=== PATIENT | female | born 1930 | race Caucasian/White ===

== ENCOUNTER 2016-11-02 06:13 | Day surgery (SDC) | payer MEDICARE, OTHER ==
[2016-10-28 15:08] VITALS: BP 183/74
[~2016-11-02] VITALS: Ht 157.5 cm; Wt 81.0 kg
[~2016-11-02 06:13] MED LIST: AMLO5TAB2 PO; ASPI-496 PO; ATEN25TA PO; CEFD300C2 PO; CEPH-375 PO; CHOL20002 PO; CITA20TA5 PO; FURO20TA3 PO; LATA2.5D3 EACHEYE; LISI40TA PO; MAGNESSIUM PO; NITR0.4T8 SL; OCTIVITE PO; OMNICEF PO; OXYC-302 PO; POTA10TA31 PO; POTA10TA5 PO; SIMV10TA3 PO
[2016-11-02 07:10] VITALS: BP 183/74
[2016-11-02] MEDS ORDERED: FENTANYL PF 100 MCG/2ML ONE (07:21)
[2016-11-02] MEDS ORDERED: LACTATED RINGERS 1,000 ML IV SCH (07:28)
[2016-11-02] MEDS ORDERED: LIDOCAINE 1%, 2ML SQ PRN (07:30)
[2016-11-02] MEDS ORDERED: PROPOFOL 10 MG/ML, 20ML ONE (07:33)
[2016-11-02] MEDS ORDERED: ONDANSETRON 2MG/ML, 2ML ONE (07:33)
[2016-11-02] MEDS ORDERED: CEFAZOLIN 1,000 MG ONE (07:33)
[2016-11-02] MEDS ORDERED: LABETALOL 5MG/ML, 20ML IV PRN (08:30)
[2016-11-02] MEDS ORDERED: ONDANSETRON 2MG/ML, 2ML IVPush PRN (08:30)
[2016-11-02] MEDS ORDERED: FENTANYL PF 100 MCG/2ML IV PRN (08:30)
[2016-11-02] MEDS ORDERED: OXYcodone 5 MG/5 ML ORAL.SOL UDC PO PRN (08:30)
[2016-11-02] MEDS ORDERED: HYDROmorphone 1 MG/ML, 1ML IV PRN (08:30)
[2016-11-02] MEDS ORDERED: hydrALAzine 20 MG/ML, 1ML IV PRN (08:30)
== END 2016-11-02 09:50 | disposition home or self-care (01) ==
LOC: OUT 06:13
PROVIDERS: ATTEND Urology
DX: Z46.6 Encounter for fitting and adjustment of urinary device (principal); N13.5 Crossing vessel and stricture of ureter without hydronephrosis; Z87.440 Personal history of urinary (tract) infections; I13.0 Hypertensive heart and chronic kidney disease with heart failure and stage 1 through stage 4 chronic kidney disease, or unspecified chronic kidney disease; N18.9 Chronic kidney disease, unspecified; I50.9 Heart failure, unspecified; E78.5 Hyperlipidemia, unspecified; M19.90 Unspecified osteoarthritis, unspecified site; Z87.19 Personal history of other diseases of the digestive system; Z96.653 Presence of artificial knee joint, bilateral; Z98.49 Cataract extraction status, unspecified eye; Z96.1 Presence of intraocular lens; I25.10 Atherosclerotic heart disease of native coronary artery without angina pectoris; Z95.5 Presence of coronary angioplasty implant and graft; I48.91 Unspecified atrial fibrillation; I25.2 Old myocardial infarction; I35.0 Nonrheumatic aortic (valve) stenosis; Z82.49 Family history of ischemic heart disease and other diseases of the circulatory system; Z82.3 Family history of stroke; Z80.42 Family history of malignant neoplasm of prostate
CPT/HCPCS: 52332; 74000; 76000; C1769; C2617; J0690; J2405; J2704; J3010; J7120

== ENCOUNTER 2018-04-20 11:05 | Inpatient (IN) | payer MEDICARE, OTHER ==
[~2018-04-20] VITALS: Ht 157.5 cm; Wt 77.7 kg
[~2018-04-20 11:05] MED LIST changes: -AMLO5TAB2 PO; +AMLO5TAB7 PO; -CEFD300C2 PO; +CEFD300C37 PO; -CHOL20002 PO; +CHOL200052 PO; -CITA20TA5 PO; +CITA20TA6 PO; +NITR0.4T28 SL; -NITR0.4T8 SL; +[UNRECOGNIZED DRUG - OTHER] EC
[2018-04-20] MEDS ORDERED: LACTATED RINGERS 1,000 ML IV SCH (12:09)
[2018-04-20 12:16] VITALS: BP 138/86
[2018-04-20 13:18] LABS: CULTURE INDICATED? YES; MICROSCOPIC INDICATED
[2018-04-20] MEDS ORDERED: LABETALOL 5MG/ML, 20ML IVPush PRN (14:30)
[2018-04-20] MEDS ORDERED: ONDANSETRON 2MG/ML, 2ML IVPush PRN (14:30)
[2018-04-20] MEDS ORDERED: hydrALAzine 20 MG/ML, 1ML IVPush PRN (14:30)
[2018-04-20] MEDS ORDERED: ONDANSETRON ODT 4 MG PO PRN (14:30)
[2018-04-20] MEDS ORDERED: BISACODYL 10 MG SUPP PR PRN (14:30)
[2018-04-20] MEDS ORDERED: ACETAMINOPHEN 325 MG TABLET PO PRN (14:30)
[2018-04-20] MEDS ORDERED: POLYETHYLENE GLYCOL 17 GM PACKET PO PRN (14:30)
[2018-04-20 15:36] LABS: BASOPHILS # (AUTO) 0.03 x10^3/uL (0-0.1); BASOPHILS % (AUTO) 0 % (0-1); EOSINOPHILS # (AUTO) 0.24 x10^3/uL (0-0.4); EOSINOPHILS % (AUTO) 2 % (1-7); LYMPHOCYTES # (AUTO) 2.42 x10^3/uL (1-3.4); LYMPHOCYTES % (AUTO) 23 % (22-44); MD NO; MEAN CORPUSCULAR HEMOGLOBIN 29.8 pg (27.0-34.8); MEAN CORPUSCULAR HGB CONC 33.1 g/dL (32.4-35.8); MEAN CORPUSCULAR VOLUME 90.1 fL (80-100); MEAN PLATELET VOLUME 7.8 fL (7.4-10.4); MONOCYTES # (AUTO) 0.55 x10^3/uL (0.2-0.8); MONOCYTES % (AUTO) 5 % (2-9); NEUTROPHILS # (AUTO) 7.11 x10^3/uL (1.8-6.8); NEUTROPHILS % (AUTO) 69 % (42-75); PLATELET COUNT 344 x10^3/uL (130-400); RED BLOOD COUNT 4.95 x10^6/uL (3.82-5.3); RED CELL DISTRIBUTION WIDTH 14.8 % (9.6-15.2)
[2018-04-20 15:45] LABS: ALBUMIN 3.5 g/dL (3.4-5.0); ANION GAP 9 mmol/L (5-15); CALCIUM 9.3 mg/dL (8.5-10.1); CHLORIDE 112 mmol/L (98-107)
[2018-04-20 15:51] LABS: ALANINE AMINOTRANSFERASE 20 U/L (12-78); ALKALINE PHOSPHATASE 155 U/L (45-117); BILIRUBIN,TOTAL 0.6 mg/dL (0.2-1.0); CREATININE 1.76 mg/dL (0.55-1.02); TOTAL PROTEIN 6.9 g/dL (6.4-8.2); TROPONIN I < 0.015 ng/mL (0.000-0.045)
[2018-04-20 16:03] VITALS: BP 137/82
[2018-04-20] MEDS: CEFTRIAXONE PMX 1GM/50ML 50 ML IV SCH (16:35)
[2018-04-20] MEDS: SODIUM CHLORIDE 0.9% 1,000 ML IV SCH (16:35)
[2018-04-20 17:04] VITALS: BP 137/82
[2018-04-20] MEDS ORDERED: METOPROLOL 1 MG/ML, 5ML IVPush PRN (18:00)
[2018-04-20 20:00] VITALS: BP 129/74
[2018-04-20] MEDS: SIMVASTATIN 10 MG TABLET PO SCH (21:30)
[2018-04-20] MEDS: DOCUSATE 100 MG CAPSULE PO SCH (21:30)
[2018-04-21] MEDS: SODIUM CHLORIDE 0.9% 1,000 ML IV SCH (00:40)
[2018-04-21 02:00] VITALS: BP 147/84
[2018-04-21 07:00] VITALS: BP 152/89
[2018-04-21 08:45] LABS: BASOPHILS # (AUTO) 0.02 x10^3/uL (0-0.1); BASOPHILS % (AUTO) 0 % (0-1); EOSINOPHILS # (AUTO) 0.26 x10^3/uL (0-0.4); EOSINOPHILS % (AUTO) 3 % (1-7); LYMPHOCYTES # (AUTO) 1.96 x10^3/uL (1-3.4); LYMPHOCYTES % (AUTO) 21 % (22-44); MD NO; MEAN CORPUSCULAR HEMOGLOBIN 29.4 pg (27.0-34.8); MEAN CORPUSCULAR HGB CONC 32.9 g/dL (32.4-35.8); MEAN CORPUSCULAR VOLUME 89.3 fL (80-100); MEAN PLATELET VOLUME 7.3 fL (7.4-10.4); MONOCYTES # (AUTO) 0.51 x10^3/uL (0.2-0.8); MONOCYTES % (AUTO) 6 % (2-9); NEUTROPHILS # (AUTO) 6.56 x10^3/uL (1.8-6.8); NEUTROPHILS % (AUTO) 71 % (42-75); PLATELET COUNT 321 x10^3/uL (130-400); RED CELL DISTRIBUTION WIDTH 14.5 % (9.6-15.2)
[2018-04-21 08:56] LABS: ANION GAP 8 mmol/L (5-15); CALCIUM 8.3 mg/dL (8.5-10.1); CHLORIDE 113 mmol/L (98-107); CREATININE 1.78 mg/dL (0.55-1.02)
[2018-04-21] MEDS: MAGNESIUM OXIDE 400 MG TABLET PO SCH (09:00)
[2018-04-21] MEDS: DOCUSATE 100 MG CAPSULE PO SCH ×2 (09:00→21:43)
[2018-04-21] MEDS: CITALOPRAM 20 MG TABLET PO SCH (09:00)
[2018-04-21] MEDS: CHOLECALCIFEROL 1,000 UNIT TABLET PO SCH (09:00)
[2018-04-21] MEDS: ATENOLOL 25 MG TABLET PO SCH (09:19)
[2018-04-21] MEDS: AMLODIPINE 10 MG TAB PO SCH (09:19)
[2018-04-21 13:49] VITALS: BP 127/84
[2018-04-21] MEDS: HEPARIN 5,000 UNITS/ML, 1ML SQ SCH ×2 (15:26→23:23)
[2018-04-21] MEDS: CEFTRIAXONE PMX 1GM/50ML 50 ML IV SCH (16:43)
[2018-04-21 19:33] VITALS: BP 134/71
[2018-04-21] MEDS: SIMVASTATIN 10 MG TABLET PO SCH (21:43)
[2018-04-22 01:11] VITALS: BP 142/79
[2018-04-22 05:20] LABS: BASOPHILS # (AUTO) 0.02 x10^3/uL (0-0.1); BASOPHILS % (AUTO) 0 % (0-1); EOSINOPHILS # (AUTO) 0.21 x10^3/uL (0-0.4); EOSINOPHILS % (AUTO) 2 % (1-7); LYMPHOCYTES % (AUTO) 19 % (22-44); MD NO; MEAN CORPUSCULAR HEMOGLOBIN 29.7 pg (27.0-34.8); MEAN CORPUSCULAR HGB CONC 32.9 g/dL (32.4-35.8); MEAN CORPUSCULAR VOLUME 90.4 fL (80-100); MEAN PLATELET VOLUME 7.9 fL (7.4-10.4); MONOCYTES # (AUTO) 0.52 x10^3/uL (0.2-0.8); MONOCYTES % (AUTO) 5 % (2-9); NEUTROPHILS # (AUTO) 7.17 x10^3/uL (1.8-6.8); NEUTROPHILS % (AUTO) 73 % (42-75); PLATELET COUNT 305 x10^3/uL (130-400); RED BLOOD COUNT 4.58 x10^6/uL (3.82-5.3); RED CELL DISTRIBUTION WIDTH 14.4 % (9.6-15.2)
[2018-04-22 05:25] LABS: ALANINE AMINOTRANSFERASE 19 U/L (12-78); ALBUMIN 2.9 g/dL (3.4-5.0); ANION GAP 9 mmol/L (5-15); CALCIUM 8.6 mg/dL (8.5-10.1); CHLORIDE 114 mmol/L (98-107)
[2018-04-22 05:27] LABS: ALKALINE PHOSPHATASE 132 U/L (45-117); BILIRUBIN,TOTAL 0.5 mg/dL (0.2-1.0); TOTAL PROTEIN 5.8 g/dL (6.4-8.2)
[2018-04-22] MEDS: HEPARIN 5,000 UNITS/ML, 1ML SQ SCH (05:44)
[2018-04-22 07:26] VITALS: BP 132/83
[2018-04-22] MEDS ORDERED: ASPIRIN 81 MG TABLET EC PO SCH (09:00)
[2018-04-22] MEDS: CITALOPRAM 20 MG TABLET PO SCH (09:06)
[2018-04-22] MEDS: AMLODIPINE 10 MG TAB PO SCH (09:07)
[2018-04-22] MEDS: CHOLECALCIFEROL 1,000 UNIT TABLET PO SCH (09:07)
[2018-04-22] MEDS: DOCUSATE 100 MG CAPSULE PO SCH (09:07)
[2018-04-22] MEDS: MAGNESIUM OXIDE 400 MG TABLET PO SCH (09:07)
[2018-04-22] MEDS: ATENOLOL 25 MG TABLET PO SCH (09:07)
[2018-04-22] MEDS ORDERED: CEFD300C37 PO (09:52)
== END 2018-04-22 13:10 | disposition home or self-care (01) | DRG 690 ==
LOC: OUT 11:05 → ORIP 14:15 → 4WST 15:42
PROVIDERS: ADMIT Urology; ATTEND Urology
DX: N39.0 Urinary tract infection, site not specified (principal); I48.92 Unspecified atrial flutter; I13.0 Hypertensive heart and chronic kidney disease with heart failure and stage 1 through stage 4 chronic kidney disease, or unspecified chronic kidney disease; N13.5 Crossing vessel and stricture of ureter without hydronephrosis; I50.9 Heart failure, unspecified; I25.10 Atherosclerotic heart disease of native coronary artery without angina pectoris; Z53.9 Procedure and treatment not carried out, unspecified reason; K59.00 Constipation, unspecified; I48.91 Unspecified atrial fibrillation; N18.9 Chronic kidney disease, unspecified; Z96.0 Presence of urogenital implants; M19.90 Unspecified osteoarthritis, unspecified site; R00.0 Tachycardia, unspecified; E86.0 Dehydration; Z87.891 Personal history of nicotine dependence; I25.2 Old myocardial infarction
CPT/HCPCS: 36415; 71045; 80048; 80053; 81001; 83605; 83735; 84443; 84484; 85025; 87040; 87077; 87086; 87186; 93005; G0378; J0696; J1644; J7030

== ENCOUNTER 2018-04-25 15:14 | Day surgery (SDC) | payer MEDICARE, OTHER ==
[~2018-04-25] VITALS: Ht 157.5 cm; Wt 77.3 kg
[2018-04-25 15:47] VITALS: BP 140/80
[2018-04-25] MEDS ORDERED: LACTATED RINGERS 1,000 ML IV SCH (16:05)
[2018-04-25] MEDS ORDERED: FENTANYL PF 100 MCG/2ML ONE (16:32)
[2018-04-25] MEDS ORDERED: LIDOCAINE 2% 100MG/5ML SYRINGE ONE (17:10)
[2018-04-25] MEDS ORDERED: PROPOFOL 10 MG/ML, 20ML ONE (17:10)
[2018-04-25] MEDS ORDERED: CEFTRIAXONE 1,000 MG ONE (17:20)
[2018-04-25] MEDS ORDERED: ONDANSETRON 2MG/ML, 2ML IV PRN (17:30)
[2018-04-25] MEDS ORDERED: FENTANYL PF 100 MCG/2ML IV PRN (17:30)
[2018-04-25] MEDS ORDERED: OXYcodone 5 MG/5 ML ORAL.SOL UDC PO PRN (17:30)
[2018-04-25] MEDS ORDERED: ONDANSETRON ODT 8 MG PO PRN (17:30)
[2018-04-25] MEDS ORDERED: ACETAMINOPHEN 325 MG TABLET PO PRN (17:30)
[2018-04-25] MEDS ORDERED: OXYC-302 PO (20:44)
== END 2018-04-25 21:25 | disposition home or self-care (01) ==
LOC: OR 15:14 → 4NOR 18:20 → OR 21:25
PROVIDERS: ATTEND Urology
DX: T83.89XA Other specified complication of genitourinary prosthetic devices, implants and grafts, initial encounter (principal); I10 Essential (primary) hypertension; I25.2 Old myocardial infarction; Y83.8 Other surgical procedures as the cause of abnormal reaction of the patient, or of later complication, without mention of misadventure at the time of the procedure; Y92.89 Other specified places as the place of occurrence of the external cause; Z87.440 Personal history of urinary (tract) infections; Z98.890 Other specified postprocedural states; Z79.82 Long term (current) use of aspirin; Z88.1 Allergy status to other antibiotic agents; Z88.8 Allergy status to other drugs, medicaments and biological substances; Z87.39 Personal history of other diseases of the musculoskeletal system and connective tissue
CPT/HCPCS: 52332; 74018; 76000; C1769; C2617; J0696; J2704; J3010; J7120; G0378

== ENCOUNTER 2018-04-29 00:45 | Inpatient (IN) | payer MEDICARE, OTHER ==
[~2018-04-29] VITALS: Ht 157.5 cm; Wt 85.6 kg
[2018-04-29] MEDS ORDERED: ALBUTEROL/IPRATROPIUM 2.5MG/0.5MG, 3 ML ONE (00:57)
[2018-04-29] MEDS ORDERED: ASPIRIN 81 MG TABLET CHEW PO ONE (01:00)
[2018-04-29] MEDS ORDERED: IPRATROPIUM 0.5 MG/2.5 ML INHA NPPB ONE (01:00)
[2018-04-29] MEDS ORDERED: methylPREDNISolone SOD SUCC 125 MG/2 ML IVP ONE (01:00)
[2018-04-29] MEDS ORDERED: ALBUTEROL SULFATE 2.5 MG/3 ML NPPB ONE (01:00)
[2018-04-29] MEDS ORDERED: SODIUM CHLORIDE 0.9% 1,000ML IVBOLUS ONE (01:00)
[2018-04-29 01:11] LABS: BASOPHILS # (AUTO) 0.03 x10^3/uL (0-0.1); BASOPHILS % (AUTO) 0 % (0-1); EOSINOPHILS # (AUTO) 0.29 x10^3/uL (0-0.4); EOSINOPHILS % (AUTO) 3 % (1-7); LYMPHOCYTES # (AUTO) 2.65 x10^3/uL (1-3.4); LYMPHOCYTES % (AUTO) 23 % (22-44); MD NO; MEAN CORPUSCULAR HEMOGLOBIN 29.9 pg (27.0-34.8); MEAN CORPUSCULAR VOLUME 90.4 fL (80-100); MEAN PLATELET VOLUME 7.9 fL (7.4-10.4); MONOCYTES # (AUTO) 0.64 x10^3/uL (0.2-0.8); MONOCYTES % (AUTO) 6 % (2-9); NEUTROPHILS # (AUTO) 7.84 x10^3/uL (1.8-6.8); NEUTROPHILS % (AUTO) 69 % (42-75); PLATELET COUNT 384 x10^3/uL (130-400); RED BLOOD COUNT 4.68 x10^6/uL (3.82-5.3); RED CELL DISTRIBUTION WIDTH 14.4 % (9.6-15.2)
[2018-04-29] MEDS ORDERED: methylPREDNISolone SOD SUCC 125 MG/2 ML ONE (01:21)
[2018-04-29] MEDS ORDERED: ASPIRIN 81 MG TABLET EC ONE (01:21)
[2018-04-29 01:25] LABS: ALBUMIN 3.2 g/dL (3.4-5.0); ANION GAP 11 mmol/L (5-15); CALCIUM 8.9 mg/dL (8.5-10.1); CHLORIDE 113 mmol/L (98-107)
[2018-04-29 01:28] LABS: TROPONIN I < 0.015 ng/mL (0.000-0.045)
[2018-04-29] MEDS ORDERED: PROMETHAZINE 25 MG/ML, 1ML IM PRN (03:30)
[2018-04-29] MEDS ORDERED: BISACODYL 10 MG SUPP PR PRN (03:30)
[2018-04-29] MEDS ORDERED: FUROSEMIDE 40 MG/4 ML IV ONE (03:30)
[2018-04-29] MEDS ORDERED: POLYETHYLENE GLYCOL 17 GM PACKET PO PRN (03:30)
[2018-04-29] MEDS ORDERED: DOCUSATE 100 MG CAPSULE PO PRN (03:30)
[2018-04-29] MEDS ORDERED: ONDANSETRON 2MG/ML, 2ML IVPush PRN (03:30)
[2018-04-29] MEDS ORDERED: ACETAMINOPHEN 325 MG TABLET PO PRN (03:30)
[2018-04-29] MEDS ORDERED: LABETALOL 5MG/ML, 20ML IVPush PRN (03:30)
[2018-04-29] MEDS ORDERED: hydrALAzine 20 MG/ML, 1ML IVPush PRN (03:30)
[2018-04-29] MEDS ORDERED: ONDANSETRON ODT 4 MG PO PRN (03:30)
[2018-04-29] MEDS ORDERED: NITROGLYCERIN 0.4 MG BOTTLE (25 TABS) SL PRN (03:30)
[2018-04-29 03:56] LABS: FREE T4 (FREE THYROXINE) 1.24 ng/dL (0.76-1.46); THYROID STIMULATING HORMONE 4.91 mIU/L (0.358-3.740)
[2018-04-29 04:03] LABS: HEMOGLOBIN A1C 5.6 % (4.2-6.3)
[2018-04-29] MEDS: ASPIRIN 325 MG TABLET EC PO SCH (06:04)
[2018-04-29] MEDS: HEPARIN 5,000 UNITS/ML, 1ML SQ SCH ×3 (06:04→20:12)
[2018-04-29 06:36] VITALS: BP 141/75
[2018-04-29 08:14] VITALS: BP 142/90
[2018-04-29] MEDS: FUROSEMIDE 20 MG/2 ML IV SCH ×2 (08:22→17:15)
[2018-04-29] MEDS: CEFDINIR 300 MG CAPSULE PO SCH ×2 (08:22→20:12)
[2018-04-29] MEDS: CHOLECALCIFEROL 1,000 UNIT TABLET PO SCH (08:23)
[2018-04-29] MEDS: AMLODIPINE 10 MG TAB PO SCH (08:24)
[2018-04-29] MEDS: CITALOPRAM 20 MG TABLET PO SCH (08:24)
[2018-04-29 08:54] VITALS: BP 142/85
[2018-04-29 08:56] LABS: CULTURE INDICATED? YES; MICROSCOPIC INDICATED
[2018-04-29] MEDS ORDERED: TEMPLATE NON-FORMULARY MED. (Aspirin** (Aspir 81**) 81 MG) PO SCH (09:00)
[2018-04-29] MEDS ORDERED: ATENOLOL 25 MG TABLET PO SCH (09:00)
[2018-04-29 13:23] VITALS: BP 117/78
[2018-04-29 20:07] VITALS: BP 144/87
[2018-04-29] MEDS: LATANOPROST OPHTH 0.005%, 2.5ML EACHEYE SCH (20:12)
[2018-04-29] MEDS: SIMVASTATIN 10 MG TABLET PO SCH (20:12)
[2018-04-29] MEDS: MELATONIN 3 MG TABLET PO PRN (21:28)
[2018-04-30 02:06] VITALS: BP 130/84
[2018-04-30 05:25] LABS: BASOPHILS # (AUTO) 0.02 x10^3/uL (0-0.1); BASOPHILS % (AUTO) 0 % (0-1); EOSINOPHILS % (AUTO) 0 % (1-7); LYMPHOCYTES # (AUTO) 1.46 x10^3/uL (1-3.4); LYMPHOCYTES % (AUTO) 11 % (22-44); MD NO; MEAN CORPUSCULAR HEMOGLOBIN 29.5 pg (27.0-34.8); MEAN CORPUSCULAR HGB CONC 32.8 g/dL (32.4-35.8); MEAN CORPUSCULAR VOLUME 89.8 fL (80-100); MEAN PLATELET VOLUME 8.5 fL (7.4-10.4); MONOCYTES # (AUTO) 0.49 x10^3/uL (0.2-0.8); MONOCYTES % (AUTO) 4 % (2-9); NEUTROPHILS # (AUTO) 11.56 x10^3/uL (1.8-6.8); NEUTROPHILS % (AUTO) 85 % (42-75); PLATELET COUNT 339 x10^3/uL (130-400); RED BLOOD COUNT 4.27 x10^6/uL (3.82-5.3); RED CELL DISTRIBUTION WIDTH 14.9 % (9.6-15.2)
[2018-04-30] MEDS: HEPARIN 5,000 UNITS/ML, 1ML SQ SCH (05:32)
[2018-04-30] MEDS: ASPIRIN 325 MG TABLET EC PO SCH (05:32)
[2018-04-30 05:35] LABS: CHLORIDE 112 mmol/L (98-107)
[2018-04-30 06:00] LABS: ALANINE AMINOTRANSFERASE 32 U/L (12-78); ALBUMIN 2.9 g/dL (3.4-5.0); ALKALINE PHOSPHATASE 138 U/L (45-117); ANION GAP 12 mmol/L (5-15); BILIRUBIN,TOTAL 0.4 mg/dL (0.2-1.0); CALCIUM 8.6 mg/dL (8.5-10.1); CHOL/HDL RATIO 3.3; CHOLESTEROL, TOTAL 120 mg/dL (140-239); CREATININE 2.13 mg/dL (0.55-1.02); HDL CHOL % 30 % (28-40); HDL CHOLESTEROL (DIRECT) 36 mg/dL (40-60); LDL CHOLESTEROL,CALCULATED 62 mg/dL (54-169); LDL/HDL RATIO 1.7 (0.5-3.0); TOTAL PROTEIN 5.7 g/dL (6.4-8.2); TRIGLYCERIDES 112 mg/dL (50-200); VLDL CHOLESTEROL 22 mg/dL (0-25)
[2018-04-30] MEDS ORDERED: PHARMACY MAY ADJ FOR RENAL FX MC PRN (08:00)
[2018-04-30 09:30] VITALS: BP 122/70
[2018-04-30] MEDS: CEFDINIR 300 MG CAPSULE PO SCH ×2 (09:55→20:25)
[2018-04-30] MEDS: CITALOPRAM 20 MG TABLET PO SCH (09:56)
[2018-04-30] MEDS: CHOLECALCIFEROL 1,000 UNIT TABLET PO SCH (09:56)
[2018-04-30] MEDS: METOPROLOL TARTRATE 25 MG TABLET PO SCH ×2 (09:56→18:59)
[2018-04-30] MEDS: AMLODIPINE 10 MG TAB PO SCH (09:56)
[2018-04-30] MEDS ORDERED: HEPARIN 5,000 UNITS/ML, 1ML IV ONE (13:00)
[2018-04-30] MEDS ORDERED: HEPARIN 5,000 UNITS/ML, 1ML IV PRN (13:00)
[2018-04-30] MEDS ORDERED: HEPARIN 25,000 UNITS/500ML PMX 500 ML IV PRN (13:00)
[2018-04-30 16:00] VITALS: BP 136/89
[2018-04-30] MEDS: MELATONIN 3 MG TABLET PO PRN (20:25)
[2018-04-30] MEDS: SIMVASTATIN 10 MG TABLET PO SCH (20:25)
[2018-04-30] MEDS: LATANOPROST OPHTH 0.005%, 2.5ML EACHEYE SCH (20:26)
[2018-04-30 21:49] VITALS: BP 127/83
[2018-05-01 02:41] VITALS: BP 135/90
[2018-05-01 05:21] LABS: BASOPHILS # (AUTO) 0.04 x10^3/uL (0-0.1); BASOPHILS % (AUTO) 0 % (0-1); EOSINOPHILS % (AUTO) 1 % (1-7); LYMPHOCYTES # (AUTO) 4.24 x10^3/uL (1-3.4); LYMPHOCYTES % (AUTO) 27 % (22-44); MD NO; MEAN CORPUSCULAR HEMOGLOBIN 29.8 pg (27.0-34.8); MEAN CORPUSCULAR HGB CONC 32.8 g/dL (32.4-35.8); MEAN PLATELET VOLUME 8.3 fL (7.4-10.4); MONOCYTES # (AUTO) 0.84 x10^3/uL (0.2-0.8); MONOCYTES % (AUTO) 5 % (2-9); NEUTROPHILS # (AUTO) 10.68 x10^3/uL (1.8-6.8); NEUTROPHILS % (AUTO) 67 % (42-75); PLATELET COUNT 382 x10^3/uL (130-400); RED BLOOD COUNT 4.56 x10^6/uL (3.82-5.3); RED CELL DISTRIBUTION WIDTH 15.1 % (9.6-15.2)
[2018-05-01 05:32] LABS: ANION GAP 8 mmol/L (5-15); CALCIUM 8.6 mg/dL (8.5-10.1); CHLORIDE 113 mmol/L (98-107); CREATININE 1.93 mg/dL (0.55-1.02)
[2018-05-01 05:59] VITALS: BP 136/82
[2018-05-01] MEDS: ASPIRIN 325 MG TABLET EC PO SCH (06:02)
[2018-05-01] MEDS: METOPROLOL TARTRATE 25 MG TABLET PO SCH ×2 (06:02→18:14)
[2018-05-01 07:50] VITALS: BP 149/90
[2018-05-01] MEDS: CHOLECALCIFEROL 1,000 UNIT TABLET PO SCH (09:25)
[2018-05-01] MEDS: AMLODIPINE 10 MG TAB PO SCH (09:25)
[2018-05-01] MEDS: CEFDINIR 300 MG CAPSULE PO SCH ×2 (09:25→21:00)
[2018-05-01] MEDS: CITALOPRAM 20 MG TABLET PO SCH (09:25)
[2018-05-01] MEDS: APIXABAN 2.5 MG TABLET PO SCH ×2 (10:07→21:00)
[2018-05-01 12:59] VITALS: BP 135/81
[2018-05-01] MEDS: LOSARTAN 25MG TABLET PO SCH (14:06)
[2018-05-01 18:13] VITALS: BP 154/99
[2018-05-01 19:27] VITALS: BP 138/85
[2018-05-01] MEDS: SIMVASTATIN 10 MG TABLET PO SCH (21:00)
[2018-05-01] MEDS: LATANOPROST OPHTH 0.005%, 2.5ML EACHEYE SCH (21:00)
[2018-05-02 02:41] VITALS: BP 148/80
[2018-05-02 05:07] LABS: BASOPHILS # (AUTO) 0.04 x10^3/uL (0-0.1); BASOPHILS % (AUTO) 0 % (0-1); EOSINOPHILS # (AUTO) 0.23 x10^3/uL (0-0.4); EOSINOPHILS % (AUTO) 2 % (1-7); LYMPHOCYTES # (AUTO) 2.54 x10^3/uL (1-3.4); LYMPHOCYTES % (AUTO) 27 % (22-44); MD NO; MEAN CORPUSCULAR HEMOGLOBIN 30.2 pg (27.0-34.8); MEAN CORPUSCULAR HGB CONC 33.4 g/dL (32.4-35.8); MEAN CORPUSCULAR VOLUME 90.2 fL (80-100); MEAN PLATELET VOLUME 8.5 fL (7.4-10.4); MONOCYTES # (AUTO) 0.65 x10^3/uL (0.2-0.8); MONOCYTES % (AUTO) 7 % (2-9); NEUTROPHILS # (AUTO) 6.04 x10^3/uL (1.8-6.8); NEUTROPHILS % (AUTO) 64 % (42-75); PLATELET COUNT 353 x10^3/uL (130-400); RED BLOOD COUNT 4.63 x10^6/uL (3.82-5.3); RED CELL DISTRIBUTION WIDTH 14.6 % (9.6-15.2)
[2018-05-02] MEDS: METOPROLOL TARTRATE 25 MG TABLET PO SCH ×2 (05:12→17:56)
[2018-05-02 05:16] LABS: ANION GAP 8 mmol/L (5-15); CALCIUM 8.5 mg/dL (8.5-10.1); CHLORIDE 113 mmol/L (98-107)
[2018-05-02 05:21] LABS: ALANINE AMINOTRANSFERASE 37 U/L (12-78); ALKALINE PHOSPHATASE 147 U/L (45-117); BILIRUBIN,TOTAL 0.5 mg/dL (0.2-1.0); CREATININE 1.74 mg/dL (0.55-1.02); TOTAL PROTEIN 5.8 g/dL (6.4-8.2)
[2018-05-02 07:17] VITALS: BP 131/90
[2018-05-02] MEDS: CEFDINIR 300 MG CAPSULE PO SCH (08:42)
[2018-05-02] MEDS: CITALOPRAM 20 MG TABLET PO SCH (08:43)
[2018-05-02] MEDS: CHOLECALCIFEROL 1,000 UNIT TABLET PO SCH (08:43)
[2018-05-02] MEDS: LOSARTAN 25MG TABLET PO SCH (08:44)
[2018-05-02] MEDS: APIXABAN 2.5 MG TABLET PO SCH ×2 (08:44→20:33)
[2018-05-02 12:26] VITALS: BP 157/103
[2018-05-02 13:23] VITALS: BP 139/77
[2018-05-02 17:58] VITALS: BP 147/91
[2018-05-02 19:46] VITALS: BP 128/76
[2018-05-02] MEDS: SIMVASTATIN 10 MG TABLET PO SCH (20:33)
[2018-05-02] MEDS: LATANOPROST OPHTH 0.005%, 2.5ML EACHEYE SCH (21:00)
[2018-05-03 02:02] VITALS: BP 145/89
[2018-05-03] MEDS: METOPROLOL TARTRATE 25 MG TABLET PO SCH (05:32)
[2018-05-03 07:16] VITALS: BP 135/89
[2018-05-03] MEDS: CHOLECALCIFEROL 1,000 UNIT TABLET PO SCH (08:51)
[2018-05-03] MEDS: CITALOPRAM 20 MG TABLET PO SCH (08:51)
[2018-05-03] MEDS: APIXABAN 2.5 MG TABLET PO SCH (08:52)
[2018-05-03] MEDS: LOSARTAN 25MG TABLET PO SCH (08:52)
[2018-05-03] MEDS ORDERED: METO25TA35 PO (08:59)
[2018-05-03] MEDS ORDERED: APIX2.5T PO (08:59)
[2018-05-03] MEDS ORDERED: LOSA25TA2 PO (08:59)
[2018-05-03] MEDS ORDERED: FURO20TA3 PO (09:09)
== END 2018-05-03 12:00 | disposition home or self-care (01) | DRG 291 ==
LOC: ED 02:06 → EDIP 02:55 → 4WST 04:52
PROVIDERS: ADMIT Internal Medicine; ATTEND Internal Medicine
DX: I13.0 Hypertensive heart and chronic kidney disease with heart failure and stage 1 through stage 4 chronic kidney disease, or unspecified chronic kidney disease (principal); I50.33 Acute on chronic diastolic (congestive) heart failure; I48.92 Unspecified atrial flutter; N39.0 Urinary tract infection, site not specified; E87.2 Acidosis; D68.59 Other primary thrombophilia; E78.5 Hyperlipidemia, unspecified; I25.10 Atherosclerotic heart disease of native coronary artery without angina pectoris; I25.2 Old myocardial infarction; I34.0 Nonrheumatic mitral (valve) insufficiency; I42.9 Cardiomyopathy, unspecified; I48.2 Chronic atrial fibrillation; N18.3 Chronic kidney disease, stage 3 (moderate); R09.02 Hypoxemia; Z87.440 Personal history of urinary (tract) infections; Z87.891 Personal history of nicotine dependence; Z95.5 Presence of coronary angioplasty implant and graft; F32.9 Major depressive disorder, single episode, unspecified; N13.5 Crossing vessel and stricture of ureter without hydronephrosis
CPT/HCPCS: 36415; 36600; 71045; 78582; 80048; 80053; 80061; 81001; 82040; 82803; 82962; 83036; 83605; 83735; 83880; 84145; 84439; 84443; 84484; 85025; 85520; 87040; 87086; 93005; 93306; 94640; 96361; 96374; 99285; G0378; J1644; J1940; A9540; A9558; C9898; J2930; J7030